=== PATIENT | female | born 1950 | race Caucasian/White ===

== ENCOUNTER 2016-09-16 09:31 | Outpatient (CLI) | payer OTHER | END 2016-09-16 09:32 | disposition home or self-care (01) | DX: G47.33 Obstructive sleep apnea (adult) (pediatric) (principal); G47.00 Insomnia, unspecified; G25.81 Restless legs syndrome ==

== ENCOUNTER 2017-04-08 13:30 | Day surgery (SDC) | payer OTHER ==
[2017-04-08] MEDS ORDERED: LACTATED RINGERS 1,000 ML IV ONE (14:10)
[2017-04-08] MEDS ORDERED: fentaNYL 100 MCG/2 ML VIAL IVP ONE (15:09)
[2017-04-08] MEDS ORDERED: MIDAZOLAM 2 MG/2 ML VIAL IVP ONE (15:09)
[2017-04-08 16:33] VITALS: BP 114/65
== END 2017-04-08 13:31 | disposition home or self-care (01) ==
LOC: SDS 13:30
PROVIDERS: ATTEND Surgery
PROC: 0DBL8ZX Excision of Transverse Colon, Via Natural or Artificial Opening Endoscopic, Diagnostic (ICD-10-PCS; principal; 2017-04-08 14:30)
DX: Z12.11 Encounter for screening for malignant neoplasm of colon (principal); K63.5 Polyp of colon; E03.9 Hypothyroidism, unspecified; K21.9 Gastro-esophageal reflux disease without esophagitis; G47.30 Sleep apnea, unspecified
CPT/HCPCS: 45380; J7120

== ENCOUNTER 2017-08-20 08:41 | Outpatient (CLI) | payer MEDICARE, OTHER ==
--- NOTE | 2017-08-21 11:35 | DEXA Report ---
DEXA SCAN: 08/20/2017 CLINICAL INDICATION: Postmenopausal. TECHNIQUE: Dual energy x-ray absorptiometry (DXA) was performed on a [email or web address] system. Regions measured are the AP spine, femoral neck, and, if needed, forearm. COMPARISON: None. In accordance with the International Society for Clinical Densitometry (ISCD) guidelines, data from previous exams may be reanalyzed using current recommendations and techniques. This is done to allow a more accurate basis for comparison with the current study. FINDINGS: The data for the lumbar spine is as follows: REGION BMD (g/cm/cm) T-SCORE Z-SCORE L1 1.079 -0.4 0.0 L2 1.147 -0.4 0.0 L3 1.127 -0.6 -0.2 L4 1.186 -0.1 0.3 TOTAL 1.138 -0.3 0.1 NOTE: All evaluable vertebrae are used for classification. The data for the hip is as follows: REGION BMD (g/cm/cm) T-SCORE Z-SCORE Neck 1.183 1.0 1.7 TOTAL 1.232 1.8 2.1 NOTE: The femoral neck or total proximal femur, whichever is lowest, is used for classification. IMPRESSION: THE WHO CLASSIFICATION BASED ON THE INTERNATIONAL REFERENCE STANDARD IS NORMAL. THE FRACTURE RISK IS NOT INCREASED. RECOMMENDATION: Patients with diagnosis of osteoporosis or osteopenia should have regular bone mineral density assessment. For those eligible for Medicare, routine testing is allowed once every 2 years. Testing frequency can be increased for patients who have rapidly progressing disease or for those who are receiving medical therapy to restore bone mass. COMMENT: World Health Organization (WHO) definitions for osteoporosis and osteopenia: NORMAL BMD: T-score at 1.0 or higher, fracture risk is low. OSTEOPENIA BMD: T-score between 1.0 and -2.5, fracture risk is increased. OSTEOPOROSIS BMD: T-score at 2.5 or lower, fracture risk high. National Osteoporosis Foundation recommends: 1. Obtain adequate dietary calcium (at least 1200 mg per day) and vitamin D (400 -800 international units per day). 2. Participate, as appropriate, in regular weightbearing and muscle- strengthening exercise. 3. Avoid tobacco use and reduce alcohol and caffeine intake. 4. For more detailed information see the website at www.NOF.org. EFREN/ TD: 08/20/2017 13:39 MTDD
== END 2017-08-20 08:42 | disposition home or self-care (01) ==
LOC: DI 08:41
PROVIDERS: ATTEND Internal Medicine
DX: Z13.820 Encounter for screening for osteoporosis (principal); N95.8 Other specified menopausal and perimenopausal disorders
CPT/HCPCS: 77080

== ENCOUNTER 2017-10-20 13:05 | Outpatient (CLI) | payer MEDICARE, OTHER | END 2017-10-20 13:06 | disposition home or self-care (01) | LOC: SC 13:05 | PROVIDERS: ATTEND Internal Medicine Pulmonary Disease | DX: G47.33 Obstructive sleep apnea (adult) (pediatric) (principal); G47.00 Insomnia, unspecified | CPT/HCPCS: 99213; G0463; 99212 ==

== ENCOUNTER 2017-11-13 17:13 | Outpatient (CLI) | payer MEDICARE, OTHER ==
--- NOTE | 2017-11-14 11:28 | XRAY Report ---
TWO VIEW CHEST: 11/13/2017 COMPARISON: None. INDICATION: Persistent wheeze. TECHNIQUE: Two views. FINDINGS: Clear lungs. No pneumothorax or pleural effusion. Mediastinum unremarkable. IMPRESSION: NO EVIDENCE OF ACUTE THORACIC PROCESS. TD: 11/14/2017 11:27 MTDD
== END 2017-11-13 17:14 | disposition home or self-care (01) ==
LOC: DI 17:13
PROVIDERS: ATTEND Internal Medicine
DX: R06.2 Wheezing (principal)
CPT/HCPCS: 71046

== ENCOUNTER 2018-11-02 14:12 | Outpatient (CLI) | payer MEDICARE, OTHER | END 2018-11-02 14:13 | disposition home or self-care (01) | LOC: SC 14:12 | PROVIDERS: ATTEND Internal Medicine Pulmonary Disease | DX: G47.33 Obstructive sleep apnea (adult) (pediatric) (principal) | CPT/HCPCS: 99213; G0463; 99212 ==

== ENCOUNTER 2018-12-01 09:19 | Outpatient (CLI) | payer MEDICARE, OTHER ==
[~2018-12-01 09:19] MED LIST: ALBUTEROL NEB 2.5 MG/3 ML INH ONE
== END 2018-12-01 09:20 | disposition home or self-care (01) ==
LOC: RT 09:19
PROVIDERS: ATTEND Internal Medicine
DX: R06.2 Wheezing (principal)
CPT/HCPCS: 94010

== ENCOUNTER 2018-12-01 10:02 | Outpatient (CLI) | payer MEDICARE, OTHER ==
--- NOTE | 2018-12-01 15:18 | XRAY Report ---
Reason: PAIN AT BASE OF BILAT Procedure Date: 12/01/2018 Accession Number: [id number] / [id number] Procedure: XR - Hand 3 View BILAT CPT Code: FULL RESULT: EXAMS: 1. RIGHT HAND RADIOGRAPHY 2. LEFT HAND RADIOGRAPHY EXAM DATE: 12/01/2018 10:18 AM. CLINICAL HISTORY: Pain at base of bilateral MC. COMPARISON: None. TECHNIQUE: 3 views each hand. FINDINGS: Right: Bones: Normal bone density. No fractures or bone lesions. Joints: Asymmetric degenerative joint space narrowing of the fifth DIP joint. Mild degenerative narrowing at the base of thumb with subchondral sclerosis. Soft Tissues: Normal. No soft tissue swelling. Left: Bones: Normal bone density. No fractures or bone lesions. Joints: Mild to moderate degenerative joint space narrowing and osteophytosis of the fifth DIP. Mild degenerative changes at the base of thumb and first carpometacarpal joint. Soft Tissues: Normal. No soft tissue swelling. IMPRESSION: Mild symmetric degenerative osteoarthritis greatest involvement of the bilateral fifth DIPs. RADIA
== END 2018-12-01 10:03 | disposition home or self-care (01) ==
LOC: DI 10:02
PROVIDERS: ATTEND Internal Medicine
DX: M19.041 Primary osteoarthritis, right hand (principal); M19.042 Primary osteoarthritis, left hand; R06.2 Wheezing
CPT/HCPCS: 94010

== ENCOUNTER 2019-03-19 14:03 | Outpatient (CLI) | payer MEDICARE, OTHER ==
--- NOTE | 2019-03-26 12:15 | Mammography Report ---
Reason: SCREENING MAMMO Procedure Date: 03/19/2019 Accession Number: [id number] / [id number] Procedure: JÚNIOR - Screening Mammo w/Flako CPT Code: FULL RESULT: EXAM: Screening Mammo w/Flako DATE: 03/19/2019 3:04 PM CLINICAL HISTORY: Screening examination. TECHNIQUE: (B) - Bilateral CC and MLO views were obtained. COMPARISON: 03/13/2017 through 09/21/2013. PARENCHYMAL PATTERN: (A) - The breast(s) demonstrate(s) scattered fibroglandular densities. FINDINGS: There are coarse typically benign calcifications. There are no suspicious masses, calcifications, or areas of distortion. IMPRESSION: Benign findings. BI-RADS category 2. RECOMMENDATION: (ANNUAL) - Recommend routine annual screening mammography. BI-RADS CATEGORY: (2) - Benign Findings. STANDARD QUALIFYING STATEMENTS: 1. This examination was not reviewed with the aid of Computer-Aided Detection (CAD). 2. A negative or benign imaging report should not preclude biopsy if clinically suspicious findings are present. 3. Dense breasts may obscure an underlying neoplasm. 4. This examination was reviewed with the aid of 3D breast imaging (tomosynthesis).
== END 2019-03-19 14:04 | disposition home or self-care (01) ==
LOC: DI 14:03
PROVIDERS: ATTEND Internal Medicine
DX: Z12.31 Encounter for screening mammogram for malignant neoplasm of breast (principal)
CPT/HCPCS: 77063; 77067

== ENCOUNTER 2020-10-05 15:18 | Outpatient (CLI) | payer MEDICARE, OTHER ==
--- NOTE | 2020-10-05 17:02 | Ultrasound Report ---
PROCEDURE: Pelvic w/Transvaginal INDICATIONS: POSTMENOPAUSAL BLEEDING TECHNIQUE: Real-time scanning was performed of the pelvic organs, with image documentation. Additional endovagi nal scanning was necessary due to incomplete visualization of the adnexal and endometrial structures by transabdominal scanning. COMPARISON: None. FINDINGS: No pathologic free abdominal or pelvic fluid. Uterus: Uterus is normal in size at 12.7 x 5.8 x 7.6 cm. The endometrium measures 16.3 mm in combin ed thickness. Mid anterior intramural fibroid measuring 25 mm. Right/mid posterior subserosal fibroi d measuring 38 mm. Multiple nabothian cysts within the cervix, largest of which measures 12 mm. Ovaries: Not visualized. IMPRESSION: 1. Endometrial thickening. Findings could indicate hyperplasia or malignancy. Endometrial sampling is recommended. 2. Uterine fibroids. Reviewed by: Luis Francois MD on 10/05/2020 5:00 PM PST Approved by: Luis Francois MD on 10/05/2020 5:00 PM PST Station ID: [id number]
== END 2020-10-05 15:19 | disposition home or self-care (01) ==
LOC: DI 15:18
PROVIDERS: ATTEND Physician Assistant
DX: N95.0 Postmenopausal bleeding (principal); D25.1 Intramural leiomyoma of uterus; D25.2 Subserosal leiomyoma of uterus; R93.89 Abnormal findings on diagnostic imaging of other specified body structures

== ENCOUNTER 2020-10-11 15:58 | Outpatient (CLI) | payer MEDICARE, OTHER ==
--- NOTE | 2020-10-11 16:38 | XRAY Report ---
PROCEDURE: Chest 2 View X-Ray INDICATIONS: R06.00, K44.9 TECHNIQUE: 2 view(s) of the chest. COMPARISON: None. FINDINGS: Surgical changes and devices: None. Lungs and pleura: No pleural effusions or pneumothorax. Lungs are clear. Mediastinum: Mediastinal contours are normal. Heart size is normal. Bones and chest wall: No suspicious bony abnormalities. Soft tissues appear unremarkable. IMPRESSION: No acute process. Reviewed by: Luis Francois MD on 10/11/2020 4:37 PM PST Approved by: Luis Francois MD on 10/11/2020 4:37 PM [facility] Station ID: [id number]
== END 2020-10-11 15:59 | disposition home or self-care (01) ==
LOC: DI 15:58
PROVIDERS: ATTEND Physician Assistant
DX: R06.00 Dyspnea, unspecified (principal); K44.9 Diaphragmatic hernia without obstruction or gangrene

== ENCOUNTER 2020-10-27 11:27 | Outpatient (CLI) | payer MEDICARE, OTHER ==
--- NOTE | 2020-10-30 09:31 | Ultrasound Report ---
LIMITED ULTRASOUND OF LEFT BREAST: 10/27/2020 CLINICAL: Nipple discharge, left breast, not bloody. Comparison is made to exams dated: 10/27/2020 mammogram, 03/19/2019 mammogram - [facility], and 03/13/2017 mammogram - [facility]. Ultrasound of the left breast retroareolar was performed. There is a benign 0.2 cm x 0.3 cm x 0.2 cm oval cyst in the left breast at 9 o'clock in the retroareo lar region 1 cm from the nipple. This correlates as an incidental finding. IMPRESSION: BENIGN There is no sonographic evidence of malignancy. The 0.2 cm x 0.3 cm x 0.2 cm oval cyst in the left breast is benign. There is no abnormality seen in the left breast to correspond with the non-bloody discharge from the nipple in the sub-areolar depth, however, clinical correlation is recommended. A 1 year screening mammogram is recommended. This exam was interpreted at Station ID: [id number]. Electronically Signed By: Fredis suero/chelsy:10/27/2020 12:53:25 Ultrasound BI-RADS: 2 Benign BI-RADS CATEGORY: (2) - 2 RECOMMENDATION: (ANNUAL) - Recommend routine annual screening mammography. [id number] 1 year screening LATERALITY: (B)
--- NOTE | 2020-10-30 09:31 | Mammography Report ---
BILATERAL DIGITAL DIAGNOSTIC MAMMOGRAM 3D/2D: 10/27/2020 CLINICAL: Bloody nipple discharge left breast. Comparison is made to exams dated: 03/19/2019 mammogram - [facility], 03/13/2017 [facility], and 12/01/2014 mammogram - [facility]. There are scattered fibroglandular eleme nts in both breasts. No significant masses, calcifications, or other findings are seen in either breast. IMPRESSION: INCOMPLETE: NEEDS ADDITIONAL IMAGING EVALUATION There is no abnormality seen in the left breast to correspond with the non-bloody discharge from the nipple, however, ultrasound is recommended. Targeted ultrasound is recommended for further evaluatio n, which will be scheduled immediately following this exam. This exam was interpreted at Station ID: [id number]. NOTE: For mammograms, a report in lay terms will be sent to the patient. Approximately 15% of breast malignancies will not be visualized mammographically. In the management of a palpable breast mass, a negative mammogram must not discourage biopsy of a clinically suspicious lesion. Electronically Signed By: Fredis suero/chelsy:10/27/2020 12:49:45 ACR BI-RADS Category 0: Incomplete 3340F PARENCHYMAL PATTERN: (A) - The breast(s) demonstrate(s) scattered fibroglandular densities. BI-RADS CATEGORY: (0) - 0 Ultrasound 20201027 Immediate follow-up LATERALITY: (L)
== END 2020-10-27 11:28 | disposition home or self-care (01) ==
LOC: DI 11:27
PROVIDERS: ATTEND Physician Assistant
DX: N64.52 Nipple discharge (principal)

== ENCOUNTER 2020-11-01 08:48 | Outpatient (CLI) | payer MEDICARE, OTHER ==
[2020-11-01] MEDS ORDERED: REGADENOSON 0.4 MG/5 ML SYRINGE IVP ONE ×2 (11:33→15:47)
[2020-11-01] MEDS ORDERED: AMINOPHYLLINE 500 MG/20 ML VIAL ONE (11:34)
--- NOTE | 2020-11-01 12:25 | CARDIAC PROCEDURE NOTE ---
DATE OF SERVICE: 11/01/2020 Physician: Radha Roman MD, [facility] INDICATION: Dyspnea. CARDIAC RISK FACTORS: Morbid obesity, family history of heart disease, hyperlipidemia. DESCRIPTION OF PROCEDURE: After signing informed consent, the patient underwent a Lexiscan pharmaceutical stress test with nuclear myocardial perfusion imaging. RESTING HEART RATE: 88. PEAK HEART RATE: 124. RESTING BLOOD PRESSURE: 132/86. PEAK BLOOD PRESSURE: 136/70. After signing informed consent, the patient underwent a Lexiscan pharmaceutical stress test. The patient developed mild shortness of breath and chest "tightness". Aminophylline 25 mg IV was given for reversal of symptoms. Oxygen saturation was 96-98% on room air throughout the test. Later, her "tightness" was still present and another dose of Aminophylline 25 mg iv was administered and she used her inhaler, with relief of symptoms. RESTING EKG: Normal sinus rhythm, left atrial enlargement, poor R-wave progression. EKG AT PEAK: No new ST segment or T-wave changes develop with pharmaceutical stress. SUMMARY 1. Abnormal resting EKG. 2. Shortness of breath develops along with "chest tightness" but with stable oxygen saturations. 3. No ischemic changes occurred by EKG criteria during this pharmaceutical stress test. 4. Nuclear images were reported separately and showed: No stress perfusion defects to indicate ischemia. Normal LVEF. IMPRESSION: Normal stress test. cc: Sonido Seymour MD TD: 11/01/2020 12:03 MTDD
--- NOTE | 2020-11-01 17:17 | Nuclear Medicine Report ---
PROCEDURE: Rest and exercise myocardial perfusion SPECT with gated imaging and ejection fraction INDICATIONS: DYSPNEA, LEXISCAN RADIOPHARMACEUTICAL: 15.6 mCi Tc-99m Myoview IV at rest and 43.1 mCi Tc-99m Myoview IV at peak exerc ise. [id number] was performed. TECHNIQUE: Radiopharmaceutical was injected at peak stress test, and also at rest. SPECT images wer e obtained. SPECT myocardial perfusion images were displayed in short axis, horizontal long axis, an d vertical long axis views. Gated images were reviewed using [employer] software. COMPARISON: None available. CARDIAC STRESS: 0.4 mg of Lexiscan was administered for the stress portion of the exam. Hemodynamic data: There is normal blood pressure and heart rate response to exercise stress. Symptoms: Patient denied chest pain during exercise. EKG: No diagnostic EKG changes of ischemia; no ectopy. FINDINGS: Raw data: There is good myocardial labeling by radiotracer. No significant motion artifacts. Lung- to-heart ratio is (normal is less than 0.38 for tetrafosmin tracer). Left ventricle function: Gated images demonstrate normal left ventricle wall thickening. No segment al wall motion abnormality. No transient ischemic dilation; TID is 0.8 (normal less than 1.3). The left ventricle resting end-diastolic volume is 77 mL. Left ventricle stress ejection fraction is 72% ; normal values are above 45%. Myocardial perfusion: There is an apparent stress perfusion defect within the anterior wall. However , this resolves with rest and is likely related to breast attenuation artifact. IMPRESSION: 1. No stress perfusion defects to indicate ischemia. 2. No EKG changes of ischemia. 3. Ejection fraction 72%. PQRS ATTESTATIONS: Measure 322 - Is this imaging test primarily performed on a low-risk surgery patient for preoperative evaluation within 30 days preceding their low-risk non-cardiac surgery? Low-risk surgery is defined as cardiac or myocardial infarction less than 1%, including (but not limited to) endoscopic pr ocedures, superficial procedures, cataract surgery, and excisional breast surgery: Answer: No Measure 323 - Is this imaging test performed primarily for the monitoring of an asymptomatic patient who had percutaneous coronary intervention on the visit date or within 2 years of the visit date? An swer: No Measure 324 - Is this imaging test performed primarily for the initial detection and risk assessment on an asymptomatic, low coronary heart disease patient? Low CHD risk definition = clinicians should consider the maximum number of available patient factors used to estimate risk based on Lugoff (A TP III criteria), typically age, gender, diabetes, smoking status, and use of blood pressure medicati on, and integrate age appropriate estimates for missing elements, such as LDL or standard blood press ure. Answer: No Reviewed by: Eden Jauregui MD on 11/01/2020 5:16 PM PST Approved by: Eden Jauregui MD on 11/01/2020 5:16 PM PST Station ID: [id number]
== END 2020-11-01 08:49 | disposition home or self-care (01) ==
LOC: DI 08:48
PROVIDERS: ATTEND Internal Medicine
DX: R06.00 Dyspnea, unspecified (principal); R94.31 Abnormal electrocardiogram [ECG] [EKG]
CPT/HCPCS: 78452; 93017; A9500; J2785

== ENCOUNTER 2021-08-03 13:33 | Outpatient (CLI) | payer MEDICARE, OTHER | END 2021-08-03 13:34 | disposition critical access hospital (66) | LOC: EMS 13:33 | DX: R00.0 Tachycardia, unspecified (principal) | CPT/HCPCS: A0425; A0427 ==

== ENCOUNTER 2021-08-03 13:39 | Emergency (ER) | payer MEDICARE, OTHER ==
--- NOTE | 2021-08-03 14:05 | ED Physician Documentation ---
History of Present Illness - Stated complaint Stated Complaint: RAPID HR - Chief complaint Chief Complaint: Cardiac - Additonal information Additional information: 71-year-old female who has a previous history most significant for hypertension and hypothyroidism presents to the emergency department for evaluation of sudden onset palpitations racing heart and some mild shortness of air. She was simply sitting at home watching TV when she began to feel the symptoms. She checked her blood pressure and noted that it stated she had a heart rate of 130. EMS was summoned and she presents to the ER. Patient was recently diagnosed with endometrial cancer and had her first Taxol treatment on 18 July. Shortly after they began to the chemotherapy infusion she began to have similar symptoms which included tightening in her chest shor tness of air and palpitations. They were unable to complete the Taxol infusion and the patient was sent to the ER for further evaluation. She was then discharged home. She is scheduled to follow-up with her oncologist next week. Denies any previous history of concerns with her heart MIs or any strokes. She does not take any rate control agents. Review of Systems Constitutional: denies: Fever, Chills Eyes: reports: Reviewed and negative Ears: reports: Reviewed and negative Nose: reports: Reviewed and negative Throat: reports: Reviewed and negative Cardiac: reports: Palpitations. denies: Chest pain / pressure, Pedal edema, Calf pain Respiratory: reports: Dyspnea. denies: Cough GI: denies: Abdominal Pain, Nausea, Vomiting : denies: Dysuria, Frequency, Hesitancy Skin: denies: Rash, Lesions Musculoskeletal: denies: Neck pain, Back pain, Extremity pain, Joint pain, Extremity swelling Neurologic: denies: Generalized weakness, Focal weakness, Numbness PD PAST MEDICAL HISTORY - Past Medical History Cardiovascular: High cholesterol Respiratory: Sleep apnea, CPAP use Endocrine/Autoimmune: HyPOthyroidism GI: GERD, Hiatal hernia : None HEENT: Chronic vision loss Musculoskeletal: Osteoarthritis Derm: None - Past Surgical History Past Surgical History: Yes General: Colonoscopy Ortho: Knee replacement, Carpal Tunnel surgery /[employer]: section HEENT: Cataracts, Tonsil/Adenoidectomy - Present Medications Home Medications: Ambulatory Orders Medication Instructions Recorded Confirmed Atorvastatin Calcium [Lipitor] 40 mg PO DAILY 06/25/15 04/07/17 Erythromycin Base [Erythromycin] 1 applic OP 5XD 7 Days oint...g. 06/25/15 04/07/17 Esomeprazole Magnesium [Nexium] 40 mg PO DAILY 06/25/15 04/07/17 Levothyroxine [Synthroid] 225 mcg PO QDAC 06/25/15 04/07/17 Meloxicam [Mobic] 7.5 mg PO DAILY 06/25/15 04/07/17 Zolpidem [Ambien] 10 mg PO HS 06/25/15 04/07/17 Glucosa Velazquez 2Kcl/Chondroitin Velazquez 2 mg ORAL DAILY 04/07/17 04/08/17 [Glucosamine-Chondroitin Tab] Mecobalamin [B-12] 2,500 mcg PO DAILY 04/07/17 04/07/17 - Allergies Allergies/Adverse Reactions: Allergies Allergy/AdvReac Type Severity Reaction Status Date / Time gabapentin AdvReac Rash Verified 08/03/21 13:49 - Social History Does the pt smoke?: No Smoking Status: Never smoker Does the pt drink ETOH?: No Does the pt have substance abuse?: No - Immunizations Immunizations are current?: Yes PD ED PE EXPANDED - General General: Alert, No acute distress, Other (obese) - Cardiac Cardiac: Tachy, Radial strong equal, Pedal strong equal, Cap refill < 2 sec. No: Murmur Present - Respiratory Respiratory: Clear to ausultation martin. No: Distress, Labored - Abdomen Abdomen: Normal Bowel sounds. No: Tender to palpation - Derm Derm: Normal color, Warm and dry, Other (right chest port ). No: Rash - Neuro Neuro: Alert and Oriented X 3, CNII-XII intact - GCS Eye Opening: Spontaneous Motor: Obeys Commands Verbal: Oriented Total: 15 Results - Vitals Vitals: Vital Signs - 24 hr 08/03/21 08/03/21 08/03/21 13:45 14:21 15:34 Temperature 36.7 C Heart Rate 106 H 104 H 95 Respiratory 20 19 18 Rate Blood Pressure 159/99 H 108/80 149/83 H O2 Saturation 99 99 97 08/03/21 08/03/21 08/03/21 16:22 16:30 17:00 Temperature Heart Rate 98 85 91 Respiratory 26 H 15 13 Rate Blood Pressure 158/88 H 143/88 H 147/79 H O2 Saturation 99 100 99 Oxygen O2 Source Room air - EKG (time done) 1347 Rate: Rate (enter#) (103) Rhythm: Sinus tachycardia Elizabeth: LAD Intervals: Normal OH. No: Prolonged QT QRS: Normal Ischemia: Other (isolated ST elevation lead 111; absent in II, AVF) Compare to prior EKG: Old EKG unavailable Computer interpretation: Disagree with computer 1542 Rate: Rate (enter#) (94) Rhythm: NSR Elizabeth: Normal Intervals: Normal OH QRS: Normal Ischemia: Normal ST segments Compare to prior EKG: Changed from prior EKG - Labs Labs: Laboratory Tests 08/03/21 08/03/21 08/03/21 14:00 14:00 14:00 WBC 5.6 RBC 4.56 Hgb 13.6 Hct 40.7 MCV 89.3 MCH 29.8 MCHC 33.4 RDW 13.0 Plt Count 209 MPV 10.9 H Neut # (Auto) 3.5 Lymph # (Auto) 1.2 L Hodgeman # (Auto) 0.6 Eos # (Auto) 0.2 Baso # (Auto) 0.1 Absolute Nucleated RBC 0.00 Nucleated RBC % 0.0 Sodium 140 Potassium 3.9 Chloride 103 Carbon Dioxide 26 Anion Gap 11.0 BUN 23 H Creatinine 0.6 Estimated GFR (MDRD) 99 Glucose 106 H Calcium 9.0 Total Bilirubin 0.4 AST 18 ALT 28 Alkaline Phosphatase 53 Troponin I High Sens 2.4 B-Natriuretic Peptide Total Protein 6.5 L Albumin 4.0 Globulin 2.5 Albumin/Globulin Ratio 1.6 Lipase 29 TSH Thyroxine (T4) 08/03/21 08/03/21 08/03/21 14:00 14:00 14:00 WBC RBC Hgb Hct MCV MCH MCHC RDW Plt Count MPV Neut # (Auto) Lymph # (Auto) Hodgeman # (Auto) Eos # (Auto) Baso # (Auto) Absolute Nucleated RBC Nucleated RBC % Sodium Potassium Chloride Carbon Dioxide Anion Gap BUN Creatinine Estimated GFR (MDRD) Glucose Calcium Total Bilirubin AST ALT Alkaline Phosphatase Troponin I High Sens B-Natriuretic Peptide 29 Total Protein Albumin Globulin Albumin/Globulin Ratio Lipase TSH 0.10 L Thyroxine (T4) 11.74 08/03/21 16:46 WBC RBC Hgb Hct MCV MCH MCHC RDW Plt Count MPV Neut # (Auto) Lymph # (Auto) Hodgeman # (Auto) Eos # (Auto) Baso # (Auto) Absolute Nucleated RBC Nucleated RBC % Sodium Potassium Chloride Carbon Dioxide Anion Gap BUN Creatinine Estimated GFR (MDRD) Glucose Calcium Total Bilirubin AST ALT Alkaline Phosphatase Troponin I High Sens 2.6 B-Natriuretic Peptide Total Protein Albumin Globulin Albumin/Globulin Ratio Lipase TSH Thyroxine (T4) - Rads (name of study) CT angio chest Radiology: Final report received (clear lungs; no PE) CXR Radiology: Final report received (no acute cardiopulmonary process) PD MEDICAL DECISION MAKING - ED course Complexity details: reviewed results, re-evaluated patient, considered differential, d/w patient ED course: 71-year-old female presents the emergency department for evaluation of acute onset tachycardia and some mild shortness of air. Denies chest pain. She states that through the years she is intermittently had very brief episodes of palpitations but none that were sustained like today. She summoned 911 and for EMS her heart rate was sinus tachycardia at 130. By the time she presented to the emergency department her heart rate was about 110. After few hours here in the ER her heart rate is further reduced to the 80s and 90s. It has remained in sinus without findings of fibrillation or flutter. Patient reports a very similar episode on 18 July at the time that the initiated chemotherapy for her endometrial cancer. She was seen in the ER at [facility] with a negative work-up. Here in the ER her chest x-ray is unremarkable screening labs show no significant anemia. High-sensitivity troponin x2 is negative. BNP is not elevated. Given the history of cancer and the unclear focus for tachycardia CT pulmonary angio was completed and there is no findings of a pulmonary embolus. Patient was repleted with a liter of fluid here in the ER and was noted to have a very mildly elevated BUN. The cause of her sinus tachycardia is not clear. She is not on a beta-buster though she is modestly hypertensive. I have discussed with her the etiology and have recommended an outpatient echocardiogram as well as a Holter monitor. If the patient has another sustained episode of tachycardia there would be consideration for the possibility of initiating a beta-buster though after thoughtful discussion with the patient it is declined at this time. She is scheduled for repeat chemotherapy next week As well as to be measured and fitted for the initiation of radiation therapy. Departure - Departure Disposition: 01 Home, Self Care Clinical Impression: Tachycardia Condition: Stable Record reviewed to determine appropriate education?: Yes Comments: Katya singh are seen today in the emergency department for racing heart. For EMS in both the emergency department your rhythm was sinus. It was not atrial fibrillation or flutter. Here in the emergency department with a little bit of time your heart rate has decreased to the 90s. Your screening labs did not show any worrisome findings. You are not having a heart attack. You are not in heart failure. Because you have a history of cancer we did do the pulmonary angiogram of your lungs to make sure there was no blood clot and reassuringly this was negative. It is possible that you are mildly dehydrated as a cause for the tachycardia. However if over the weekend you have persistent symptoms, have a return of a racing heart that does not get better after 10 to 15 minutes, you have any chest pain fainting episodes you are to return immediately to the ER. I do recommend you follow-up closely with your primary care doctor. You would benefit from an outpatient Holter monitor where they can monitor your heart rate over time. It is okay to continue with chemotherapy as scheduled next week as well as fitting for your radiation.
[2021-08-03 14:17] LABS: BASOPHILS # (AUTO) 0.1 10^3/uL (0.0-0.1); BASOPHILS % (AUTO) 0.9 %; EOSINOPHILS # (AUTO) 0.2 10^3/uL (0.0-0.7); EOSINOPHILS % (AUTO) 3.6 %; HCT - HEMATOCRIT 40.7 % (37.0-47.0); HGB - HEMOGLOBIN 13.6 g/dL (12.0-16.0); LYMPHOCYTES # (AUTO) 1.2 10^3/uL (1.5-3.5); LYMPHOCYTES % (AUTO) 21.9 %; MEAN CORPUSCULAR HEMOGLOBIN 29.8 pg (27.0-31.0); MEAN CORPUSCULAR HGB CONC 33.4 g/dL (32.0-36.0); MEAN CORPUSCULAR VOLUME 89.3 fL (81.0-99.0); MEAN PLATELET VOLUME 10.9 fL (7.9-10.8); MONOCYTES # (AUTO) 0.6 10^3/uL (0.0-1.0); MONOCYTES % (AUTO) 11.4 %; NEUTROPHILS # (AUTO) 3.5 10^3/uL (1.5-6.6); NEUTROPHILS % (AUTO) 61.8 %; PLT - PLATELET COUNT 209 10^3/uL (130-450); RED BLOOD COUNT 4.56 10^6/uL (4.20-5.40); WHITE BLOOD COUNT 5.6 x10^3/uL (4.8-10.8)
--- NOTE | 2021-08-03 14:23 | XRAY Report ---
PROCEDURE: Chest 1 View X-Ray INDICATIONS: Chest Pain TECHNIQUE: One view of the chest was acquired. COMPARISON: Chest x-ray 10/11/2020 FINDINGS: Surgical changes and devices: Right Port-A-Cath is present distal tip projecting over the mid SVC. Lungs and pleura: No pleural effusions or pneumothorax. Lungs are clear. Mediastinum: Mediastinal contours appear normal. Heart size is normal. Bones and chest wall: No suspicious bony lesions. Overlying soft tissues appear unremarkable. IMPRESSION: No acute pulmonary process. Reviewed by: Eden Jauregui MD on 08/03/2021 2:22 PM PST Approved by: Eden Jauregui MD on 08/03/2021 2:22 PM PST Station ID: [id number]
[2021-08-03 14:29] LABS: ALBUMIN/GLOBULIN RATIO 1.6 (1.0-2.2); BILIRUBIN,TOTAL 0.4 mg/dL (0.2-1.0); CREATININE 0.6 mg/dL (0.4-1.0); POTASSIUM 3.9 mmol/L (3.5-5.0); TOTAL PROTEIN 6.5 g/dL (6.7-8.2)
[2021-08-03] MEDS ORDERED: IOVERSOL 320 100 ML VIAL IVP ONE ×2 (14:33→15:41)
[2021-08-03] MEDS ORDERED: SODIUM CHLORIDE 0.9% 1,000 ML IV STA (15:04)
--- NOTE | 2021-08-03 15:48 | CT Report ---
PROCEDURE: ANGIO CHEST W/WO INDICATIONS: tachycardia, r/o PE CONTRAST: IV CONTRAST: Optiray 320 ml: 80 PO CONTRAST: *NO PO CONTRAST TECHNIQUE: After the administration of intravenous contrast, 2 mm axial images were acquired from the pulmonary apices to the posterior costophrenic angles during the arterial phase. In addition, 1 mm lung kernel and 5 mm soft tissue kernel reconstructions were performed. 3-dimensional coronal oblique maximum int ensity projection (MIP) reformats, 8 mm axial MIP, and 5 mm coronal and sagittal MPR reformats were t hen performed through the thorax. For radiation dose reduction, the following was used: automated exp osure control, adjustment of mA and/or kV according to patient size. COMPARISON: FINDINGS: Image quality: Excellent. Pulmonary arteries: Pulmonary arteries are normal in size, and demonstrate no intraluminal filling d efects to suggest central pulmonary embolism. Lungs and pleura: Lungs are clear. No pleural effusions or pneumothorax. Central and peripheral ai rways are patent. Mediastinum: Heart size is normal, without pericardial effusion. No mediastinal or hilar adenopathy . Thoracic aorta is normal in caliber and enhancement. Esophagus is normal in caliber, without hiat al hernia. Bones and chest wall: No suspicious bony lesions. Ribs and thoracic spine appear intact throughout. No axillary or supraclavicular adenopathy. Thyroid is not visualized. Abdomen: Visualized upper abdominal solid organs appear normal in the early arterial phase of enhanc ement. IMPRESSION: Lungs are clear. No pulmonary embolism. CLINICAL RECOMMENDATION STATEMENTS: In patients <35 years with an ITN detected on CT, MRI, or extrathyroidal ultrasound, the Committee re commends further evaluation with dedicated thyroid ultrasound if the nodule is "e1 cm and has no susp icious imaging features, and if the patient has normal life expectancy. In patients "e35 years with an ITN detected on CT, MRI, or extrathyroidal ultrasound, the Committee r ecommends further evaluation with dedicated thyroid ultrasound if the nodule is "e1.5 cm and has no s uspicious imaging features, and if the patient has normal life expectancy. (ACR, 2014) Reviewed by: Eden Jauregui MD on 08/03/2021 3:46 PM PST Approved by: Eden Jauregui MD on 08/03/2021 3:46 PM PST Station ID: [id number]
[2021-08-03 17:05] VITALS: BP 147/79
== END 2021-08-03 17:38 | disposition home or self-care (01) ==
LOC: EDUNIT# → ED 13:39
DX: R00.0 Tachycardia, unspecified (principal); I10 Essential (primary) hypertension; D49.59 Neoplasm of unspecified behavior of other genitourinary organ; D64.9 Anemia, unspecified
CPT/HCPCS: 36415; 71045; 71275; 80053; 83690; 83880; 84436; 84443; 84484; 85025; 93005; 96360; 99284; Q9967

== ENCOUNTER 2022-06-03 11:52 | Emergency (ER) | payer MEDICARE, OTHER ==
--- NOTE | 2022-06-03 13:15 | XRAY Report ---
PROCEDURE: Knee 4 View LT INDICATIONS: L knee pain TECHNIQUE: 4 views of the left knee(s) were acquired. COMPARISON: None. FINDINGS: Bones: No fractures or dislocations. No suspicious bony lesions. There is severe medial and latera l compartment narrowing with periarticular osteophytes and subchondral sclerosis. Moderate patellofem oral compartment narrowing is present. Prominent patellar subluxation is present. No definitive erosi ons. Soft tissues: No joint effusion. No suspicious soft tissue calcifications. IMPRESSION: Prominent tricompartmental arthritic changes above. Reviewed by: Eden Jauregui MD on 06/03/2022 1:14 PM PDT Approved by: Eden Jauregui MD on 06/03/2022 1:14 PM PDT Station ID: [id number]
--- NOTE | 2022-06-03 13:58 | ED Physician Documentation ---
PD HPI LOWER EXT INJURY - Stated complaint Stated Complaint: LT KNEE PX - Chief complaint Chief Complaint: Ext Problem - History obtained from History obtained from: Patient - History of Present Illness PD HPI LOW EXT INJURY LOCATION: Left, Knee Type of injury: Twist. No: Fall, Blunt / blow Where injury occurred: Home Timing - onset: How many weeks ago (1) Timing - duration: Weeks (1) Timing - details: Gradual onset, Still present (much worse the past day.) Worsened by: Moving, Palpating (medial knee) Associated symptoms: No: Weakness, Numbness, Swelling, Discolored Similar symptoms before: Diagnosis (known arthritis in knee. Had prior right knee replacement due to similar. Current left knee pain is abruptly worse though.) Recently seen: Not recently seen Review of Systems Constitutional: denies: Fever, Chills Nose: denies: Rhinorrhea / runny nose, Congestion Throat: denies: Sore throat Respiratory: denies: Cough Skin: denies: Rash, Lesions Musculoskeletal: denies: Extremity swelling Neurologic: denies: Focal weakness, Numbness PD PAST MEDICAL HISTORY - Past Medical History Cardiovascular: High cholesterol Respiratory: Sleep apnea, CPAP use Endocrine/Autoimmune: HyPOthyroidism GI: GERD, Hiatal hernia : None HEENT: Chronic vision loss Musculoskeletal: Osteoarthritis Derm: None - Past Surgical History Past Surgical History: Yes General: Colonoscopy Ortho: Knee replacement, Carpal Tunnel surgery /[employer]: section HEENT: Cataracts, Tonsil/Adenoidectomy - Present Medications Home Medications: Ambulatory Orders Medication Instructions Recorded Confirmed Atorvastatin Calcium [Lipitor] 40 mg PO DAILY 06/25/15 04/07/17 Erythromycin Base [Erythromycin] 1 applic OP 5XD 7 Days oint...g. 06/25/15 04/07/17 Esomeprazole Magnesium [Nexium] 40 mg PO DAILY 06/25/15 04/07/17 Levothyroxine [Synthroid] 225 mcg PO QDAC 06/25/15 04/07/17 Meloxicam [Mobic] 7.5 mg PO DAILY 06/25/15 04/07/17 Zolpidem [Ambien] 10 mg PO HS 06/25/15 04/07/17 Glucosa Velazquez 2Kcl/Chondroitin Velazquez 2 mg ORAL DAILY 04/07/17 04/08/17 [Glucosamine-Chondroitin Tab] Mecobalamin [B-12] 2,500 mcg PO DAILY 04/07/17 04/07/17 dexAMETHasone [Decadron] 4 mg PO DAILY #5 tablet 06/03/22 oxyCODONE [Roxicodone] 5 mg PO Q6H PRN #15 tablet 06/03/22 - Allergies Allergies/Adverse Reactions: Allergies Allergy/AdvReac Type Severity Reaction Status Date / Time gabapentin AdvReac Rash Verified 06/03/22 12:10 - Social History Does the pt smoke?: No Smoking Status: Never smoker Does the pt drink ETOH?: No Does the pt have substance abuse?: No - Immunizations Immunizations are current?: Yes PD ED PE NORMAL - Vitals Vital signs reviewed: Yes - General General: Alert and oriented X 3, No acute distress, Well developed/nourished - Derm Derm: Normal color, Warm and dry, No rash - Extremities Extremities: Other (left knee without effusion. There is tenderness medial joint line and lower medial thigh/muscle area. Popliteal without tender. Ligament eval of knee has some pain with valgus stress. No widening. ) - Neuro Neuro: Alert and oriented X 3, No motor deficit, No sensory deficit Results - Vitals Vitals: Oxygen O2 Source Room air - Rads (name of study) knee exray left Radiology: Prelim report reviewed (arthritis, no fracture), See rad report duplex left lower ext Radiology: Prelim report reviewed (no DVt.), See rad report PD MEDICAL DECISION MAKING - ED course Complexity details: reviewed results (xray shows arthritis. Dupplex without DVT. ), considered differential (no effusion. Pain is medial aspect and lower thigh. ), d/w patient Departure - Departure Disposition: 01 Home, Self Care Clinical Impression: Strain of left knee Qualifiers: Encounter type: initial encounter Qualified Code(s): S86.912A - Strain of unspecified muscle(s) and tendon(s) at lower leg level, left leg, initial encounter Knee pain, left Qualifiers: Chronicity: acute Qualified Code(s): M25.562 - Pain in left knee Condition: Stable Record reviewed to determine appropriate education?: Yes Instructions: ED Sprain Knee Follow-Up: Sonido Seymour MD [Primary Care Provider] - Prescriptions: dexAMETHasone [Decadron] 4 mg PO DAILY #5 tablet oxyCODONE [Roxicodone] 5 mg PO Q6H PRN #15 tablet PRN Reason: Pain Comments: Your x-ray shows arthritis in the knee but that is not too surprising. Clinically it does not seem as much the arthritis flaring up as more likely some ligament or muscle irritation around the knee. On how to use a knee brace when up and around to support the knee ligaments and muscles. We can add a steroid anti-inflammatory daily for 5 days and see if that helps better than the ibuprofen was. Continue Tylenol 500 mg 4 times daily and to that add oxycodone every 6 hours if needed for worse pain. Off work for 2 to 3 days for last use of the knee. Gentle range of motion of the knee is good however to prevent stiffening over the next few days. Recheck if not improving well over the next several days. I transmitted your prescriptions to the [facility] pharmacy here in [place]. I am prescribing a short course of narcotic pain medication for you. These are potentially dangerous and addictive medications that should be used carefully. These medications may constipate you. Take an [id number] stool softener such as docusate twice daily with plenty of water while taking these medications. If you go 24 hours without a bowel movement, take [id number] MiraLAX, per package instructions. Do not drink or drive while taking these medications. If you received narcotic or sedating medications while in the emergency department do not drive for 24 hours. Store this medication in a safe, secure place and out of reach of children. It is a violation of federal law to give or sell this medication to another person or to use in a manner other than prescribed. The ED will not refill narcotic prescriptions, including prescriptions lost or stolen. You can dispose of unwanted medications at the [facility]'s office or at several pharmacies such as [facility]. Discharge Date/Time: 06/03/22 15:19
[2022-06-03] MEDS ORDERED: oxyCODONE 5 MG TABLET PO STA (14:21)
[2022-06-03] MEDS ORDERED: DEXAMETHASONE 10 MG/ML VIAL PO STA (14:54)
[2022-06-03] MEDS ORDERED: CHERRY SYRUP 10 ML UDC PO ONE (14:54)
[2022-06-03 15:18] VITALS: BP 165/88
--- NOTE | 2022-06-03 15:28 | Ultrasound Report ---
PROCEDURE: Duplex Ext Veins Left INDICATIONS: left knee/distal thigh pain 2-3 days TECHNIQUE: Real-time imaging, as well as color and pulse Doppler interrogation, were performed of the lower extr emity deep veins from the inguinal ligament to the popliteal fossa. COMPARISON: None. FINDINGS: The deep veins are normally compressible, and free of intraluminal thrombus. Color and pu lse Doppler demonstrate normal phasic intraluminal flow. There is normal augmentation response to di stal compression maneuver. IMPRESSION: No sonographic evidence of DVT. Reviewed by: Warner Herring MD on 06/03/2022 3:26 PM PDT Approved by: Warner Herring MD on 06/03/2022 3:26 PM PDT Station ID: [id number]
== END 2022-06-03 15:19 | disposition home or self-care (01) ==
LOC: ED 11:52
DX: S86.912A Strain of unspecified muscle(s) and tendon(s) at lower leg level, left leg, initial encounter (principal); X58.XXXA Exposure to other specified factors, initial encounter
CPT/HCPCS: 73564; 93971; 99283; A9270

== ENCOUNTER 2023-09-26 09:34 | Outpatient (CLI) | payer MEDICARE, OTHER ==
--- NOTE | 2023-09-26 10:57 | DEXA Report ---
"PROCEDURE: Dexa Spine and/or Hip INDICATIONS: POST MENOPAUSAL TECHNIQUE: Dual energy x-ray absorptiometry (DXA) was performed on a [employer] System. Regions measur ed are the AP Spine, femoral neck, and if needed forearm. COMPARISON: 08/20/2017 FINDINGS: Lumbar Spine: Bone Mineral Density 1.281 g/cm/cm,T score 0.8. Normal, change from previous 12.6%, significant Left Femoral Neck: Bone Mineral Density 1.100 g/cm/cm, T score 0.4, normal. Left Hip: Bone Mineral Density 1.171 g/cm/cm,T score 1.3. Normal, change from previous -5.0%, significant (T score greater or equal to -1.0: NORMAL) (T score from -1.1 to -2.4: OSTEOPENIA) (T score less than or equal to -2.5 to: OSTEOPOROSIS) Impression: By WHO criteria, this patient has normal bone density. Interval statistical increase in bone mineral density of the lumbar spine. This may be due to success ful treatment versus increasing degenerative sclerosis. Interval statistical decrease in bone mineral density of the hip. Patients with diagnosis of osteoporosis or osteopenia should have regular bone mineral density assess ment. For those eligible for Medicare, routine testing is allowed once every 2 years. Testing frequ ency can be increased for patients who have rapidly progressing disease or for those who are receivin g medical therapy to restore bone mass. Reviewed by: Nella Zavaleta MD on 09/26/2023 10:56 AM PST Approved by: Nella Zavaleta MD on 09/26/2023 10:56 AM PST Station ID: [id number]"
== END 2023-09-26 09:35 | disposition home or self-care (01) ==
LOC: DI 09:34
PROVIDERS: ATTEND Nurse Practitioner Family
DX: Z13.820 Encounter for screening for osteoporosis (principal); N95.8 Other specified menopausal and perimenopausal disorders